=== PATIENT | female | born 1975 | race Hispanic/Latino ===

== ENCOUNTER → 2018-08-11 | Outpatient (CLI) | payer OTHER, SELFPAY | END | disposition home or self-care (01) | LOC: RAH 11:08 | PROVIDERS: ATTEND Family Medicine | DX: Z12.31 Encounter for screening mammogram for malignant neoplasm of breast (principal) | CPT/HCPCS: 77067 ==

== ENCOUNTER 2023-08-11 19:04 | Emergency (ER) | payer MEDICAID, OTHER ==
[~2023-08-11] VITALS: Ht 152.4 cm; Wt 101.2 kg
[2023-08-11 19:14] VITALS: BP 144/83; PULSE 81; RESP 18
[2023-08-11] MEDS ORDERED: ACET-2079 PO (19:49)
[2023-08-11] MEDS ORDERED: IBUP-2077 PO (19:49)
[2023-08-11] MEDS ORDERED: AMOX1TAB16 PO (19:49)
[2023-08-11] MEDS: ACETAMINOPHEN WITH CODEINE 1 TAB TAB PO ONE (20:19)
[2023-08-11] MEDS: KETOROLAC 30MG VIAL (30MG/ML) IM ONE (20:19)
== END 2023-08-11 20:29 | disposition home or self-care (01) ==
LOC: EDH 19:04
DX: K08.89 Other specified disorders of teeth and supporting structures (principal); Z90.49 Acquired absence of other specified parts of digestive tract
CPT/HCPCS: 99283; 96372; J1885